=== PATIENT | female | born 1980 | race Caucasian/White ===

== ENCOUNTER 2018-10-09 19:49 | Emergency (ER) | payer BC ==
[2018-10-09] MEDS ORDERED: Metoclopramide 10 MG/2 ML SDV IV ONE (20:28)
[2018-10-09] MEDS ORDERED: Lactated Ringers 1,000 ML IV ONE (20:28)
[2018-10-09] MEDS ORDERED: diphenhydrAMINE 50 MG/ML SDV IVPUSH ONE (20:29)
--- NOTE | 2018-10-09 20:35 | EDM.PDOC ---
ED HPI GENERAL MEDICAL PROBLEM - General Chief Complaint: Headache Stated Complaint: MIGRAINE SICK FEELING Time Seen by Provider: 10/09/18 20:10 Source of Information: Reports: Patient History Limitations: Reports: No Limitations - History of Present Illness INITIAL COMMENTS - FREE TEXT/NARRATIVE: 38 yo presents with concerns of headache. Current 8 weeks , yet to be verified as IUP by US. Reports DUCKWORTH started around 1p. Has been progressive. Bifrontal with tightness in the back of her head. Typical for her migraines. Associated nausea which is also normal for her DUCKWORTH. No vision changes. No weakness. Does have hx of MS currently off meds. No fevers or neck stiffness. migraine headache Pain Score (Numeric/FACES): 6 - Related Data Allergies Allergy/AdvReac Type Severity Reaction Status Date / Time Penicillins Allergy Hives Verified 10/09/18 20:15 Home Meds: Home Meds [id number]/Iron Fumarate/FA/DSS [ 19 Tablet] 1 each PO DAILY 10/09/18 [ History] Sertraline HCl [Zoloft] 50 mg PO DAILY 10/09/18 [History] Past Medical History Gastrointestinal History: Reports: Other (See Below) Other Gastrointestinal History: acid reflux [employer] History: Reports: Ectopic , Neurological History: Reports: Migraines, MS Psychiatric History: Reports: Anxiety, Depression - Infectious Disease History Infectious Disease History: Reports: Chicken Pox, Shingles - Past Surgical History Female Surgical History: Reports: Other (See Below) Other Female Surgeries/Procedures: left fallopian removed due to ectopic Social & Family History - Tobacco Use Smoking Status *Q: Never Smoker - Caffeine Use Caffeine Use: Reports: Soda - Recreational Drug Use Recreational Drug Use: No ED ROS GENERAL - Review of Systems Review Of Systems: See Below Constitutional: Reports: No Symptoms. Denies: Fever, Chills HEENT: Reports: No Symptoms Respiratory: Reports: No Symptoms Cardiovascular: Reports: No Symptoms Endocrine: Reports: No Symptoms GI/Abdominal: Reports: No Symptoms : Reports: No Symptoms Musculoskeletal: Reports: No Symptoms Skin: Reports: No Symptoms Neurological: Reports: Headache Psychiatric: Reports: No Symptoms Hematologic/Lymphatic: Reports: No Symptoms Immunologic: Reports: No Symptoms - Physical Exam Exam: See Below Exam Limited By: No Limitations General Appearance: Alert, Mild Distress Ears: Normal External Exam Nose: Normal Inspection Throat/Mouth: Normal Inspection Head Exam: Atraumatic, Normocephalic Neck: Normal Inspection, Full Range of Motion Respiratory/Chest: No Respiratory Distress, Lungs Clear Cardiovascular: Regular Rate, Rhythm, No Murmur GI/Abdominal: Normal Bowel Sounds, Soft, Non-Tender Neuro Exam (Abbreviated): Alert, Oriented, CN II-XII Intact, No Motor/Sensory Deficits, Other (speech is fluid, no drift, finger/nose testing normal, strength extremities 5/5 and symmetric ) Back Exam: Normal Inspection Extremities: Normal Inspection Psychiatric: Normal Affect, Normal Mood Skin Exam: Warm, Diaphoretic Course - Vital Signs Last Recorded V/S: Last Vital Signs Temp 35.5 C 10/09/18 20:18 Pulse 72 10/09/18 21:23 Resp 16 10/09/18 20:18 BP 122/77 10/09/18 21:23 Pulse Ox 99 10/09/18 20:18 - Orders/Labs/Meds Meds: Medications Discontinued Medications Generic Name Dose Route Start Last Admin Trade Name Kendy PRN Reason Stop Dose Admin Acetaminophen 975 mg 10/09/18 20:57 10/09/18 22:10 Tylenol PO 10/09/18 20:58 975 mg NOW ONE Administration Diphenhydramine HCl 50 mg 10/09/18 20:29 10/09/18 20:48 Benadryl IVPUSH 10/09/18 20:30 50 mg ONETIME ONE Administration Lactated Ringer's 1,000 mls @ 999 mls/hr 10/09/18 20:28 10/09/18 20:47 Ringers, Lactated IV 10/09/18 21:28 999 mls/hr BOLUS ONE Administration Metoclopramide HCl 10 mg 10/09/18 20:28 10/09/18 20:41 Reglan IV 10/09/18 20:29 10 mg ONETIME ONE Administration Ondansetron HCl 4 mg 10/09/18 21:38 10/09/18 21:57 Zofran IVPUSH 10/09/18 21:39 4 mg ONETIME ONE Administration - Re-Assessments/Exams Free Text/Narrative Re-Assessment/Exam: 38 yo presents with concerns of DUCKWORTH. Currently 8-10 weeks . Hx of MS. Vitals normal. Neuro exam unremarkable. No meningismus. Too early in for eclampsia, BP normal. Reports hx of migraines which are similar to today's symptoms - although this seems more tension-type. Low suspicion for [employer] WORK[employer] infection, vascular catastrophe. Will treat symptomatically and re-assess. Anticipate discharge. 10/09/18 20:36 Free Text/Narrative Re-Assessment/Exam: On re-eval resting quietly in bed. Headache resolved. Safe for d/c. Prescribed zofran, encouraged to minimize use as able during . 10/09/18 22:39 Departure - Departure Time of Disposition: 22:39 Disposition: Home, Self-Care 01 Clinical Impression: Headache Qualifiers: Headache type: unspecified Headache chronicity pattern: acute headache Intractability: not intractable Qualified Code(s): R51 - Headache - Discharge Information Instructions: Recurrent Migraine Headache, [id number], General Headache Without Cause, [id number] Referrals: PCP,None [Primary Care Provider] - Forms: ED Department Discharge Additional Instructions: Please continue to take tylenol for your headache. Follow up as needed with your primary doctor, return to the ER for significant worsening of symptoms.
[2018-10-09] MEDS ORDERED: Acetaminophen 325 MG Tab PO ONE (20:57)
[2018-10-09] MEDS ORDERED: Ondansetron 4 MG/2 ML SDV IVPUSH ONE (21:38)
== END 2018-10-09 23:06 | disposition home or self-care (01) ==
LOC: JP.ED 19:49
DX: O26.891 Other specified pregnancy related conditions, first trimester (principal); R51 Headache; O99.341 Other mental disorders complicating pregnancy, first trimester; F41.9 Anxiety disorder, unspecified; F32.9 Major depressive disorder, single episode, unspecified; Z88.0 Allergy status to penicillin; Z79.899 Other long term (current) drug therapy; Z3A.08 8 weeks gestation of pregnancy
CPT/HCPCS: 96361; 96374; 96375; 99283; A9270; J1200; J2405; J2765; J7120